=== PATIENT | female | born 1935 | race Caucasian/White ===

== ENCOUNTER 2017-01-18 19:47 | Emergency (ER) | payer OTHER ==
--- NOTE | 2017-01-18 20:07 | PROVIDER DOCUMENTATION ---
HPI-General Adult <FersandrakjJuanybrenda Gregorio - Last Filed: 01/18/17 21:28> - General Source: patient, [facility] - History of Present Illness -Gen Adult Nature of Presenting Problems: 81 year old F presents to the ED via EMS from [facility]. PT was sent here for abnormal labs and Potassium was 8.5. PT states that she has been feeling different and more weak lately. Location of Pain/Injury: reports: none Pain Radiation: reports: no radiation Quality of Pain: reports: none Severity: reports: mild Onset/Duration: reports: this evening Timing: reports: still present Context/Activities at Onset: reports: none Modifying Factors: improves with: nothing Associated Symptoms: reports: weakness Similar Symptoms Previously?: No Recently seen or treated by another doctor?: No <Jewell Hernadez - Last Filed: 01/19/17 01:18> - General Stated Complaint: abnormal labs Time Seen by Provider: 01/18/17 19:56 Allergies/Adverse Reactions: Patient Allergies Allergy/AdvReac Type Severity Reaction Status Date / Time prochlorperazine Allergy ANAPHYLAXIS Verified 01/18/17 20:23 [From Compazine] prochlorperazine edisylate * Allergy ANAPHYLAXIS Verified 01/18/17 20:23 [From Compazine] prochlorperazine maleate * Allergy ANAPHYLAXIS Verified 01/18/17 20:23 [From Compazine] Home Medications: Home Medication List Medication Instructions Recorded Confirmed Last Taken Type Acetaminophen [Tylenol] 850 mg PO Q6H PRN PRN 01/18/17 01/18/17 01/17/17 18:00 History Celecoxib [Celebrex] 200 mg PO DAILY 01/18/17 01/18/17 01/18/17 09:00 History Divalproex [Depakote] 125 mg PO DAILY 01/18/17 01/18/17 01/18/17 09:00 History Haloperidol Lactate [Haldol] 5 mg IM ONCE PRN 01/18/17 01/18/17 01/17/17 History 5 mg Hydrochlorothiazide 25 mg PO DAILY 01/18/17 01/18/17 01/18/17 09:00 History Lisinopril 10 mg pe PO DAILY 01/18/17 01/18/17 01/18/17 09:00 History Metoprolol Tartrate 25 mg PO DAILY 01/18/17 01/18/17 01/18/17 09:00 History Paliperidone Palmitate [Invega 78 mg IM DAILY MDD 78 mg/0.5 ml 01/18/1701/18/17 09:00 History Sustenna] 78 mg Pantoprazole [Protonix] 40 mg PO DAILY@0700 01/18/17 01/18/17 01/17/17 21:00 History Trazodone [Desyrel] 50 mg PO DAILY 01/18/17 01/18/17 01/17/17 21:00 History Review of Systems - Adult - REVIEW OF SYSTEMS - ADULT Constitutional: denies: chills, fever Eyes: reports: no symptoms reported Ears, Nose, Mouth & Throat: reports: no symptoms reported Cardiovascular: denies: chest pain, palpitations Respiratory: denies: cough, shortness of breath Gastrointestinal: denies: abdominal pain, nausea, vomiting Genitourinary: reports: no symptoms reported Musculoskeletal: reports: muscle weakness. denies: muscle aches Integumentary: denies: skin sores/ulcer, skin thickening Neurological: denies: dizziness/vertigo, headache/migraines Psychiatric: reports: no symptoms reported Endocrine: reports: no symptoms reported Hematologic/Lymphatic: reports: no symptoms reported Allergic/Immunologic: reports: no symptoms reported All Other Systems: Reviewed and Negative <Jewell Hernadez - Last Filed: 01/19/17 01:18> Past History - Adult - PAST MEDICAL HISTORY-ADULT Review of Records: reports: Nursing Assessment Review, Medications Reviewed Cardiovascular: reports: HTN, hyperlipidemia Neurological: reports: CVA Psychiatric: reports: schizophrenia - PRIOR SURGERIES/PROCEDURES Surgical/Procedure History: reports: hysterectomy, tonsillectomy, orthopedic ( extremity), joint replacement - IMMUNIZATION STATUS Childhood Immunizations: See Nurse Assessment Flu Vaccine: See Nurse Assessment - SOCIAL HISTORY Smoking: non-smoker Substance Use: none/never Alcohol Use Frequency: never <Jewell Hernadez - Last Filed: 01/19/17 01:18> Physical Exam-General - PHYSICAL EXAM-ADULT Initial Vital Signs Reviewed: Yes - CONSTITUTIONAL General Appearance: appears well, alert, no apparent distress - RESPIRATORY Respiratory: chest non-tender, lungs clear, normal breath sounds - CARDIOVASCULAR Cardiovascular: normal peripheral pulses, regular rate, rhythm, no edema - GASTROINTESTINAL (ABDOMEN) Abdominal Exam: non tender, soft - SKIN Integumentary: normal color, normal turgor, warm/dry - PSYCHIATRIC Psych/Mental Status: normal mood/affect, normal thought content, normal thought process, oriented x 3 <Jewell Hernadez - Last Filed: 01/19/17 01:18> Progress - PLAN OF CARE/RESULTS Progress/Plan/Lab Results: Vital Signs Temp Pulse Resp BP Pulse Ox 01/18/17 20:00 97.7 F 77 20 186/97 98 prochlorperazine [From Compazine] Allergy (Verified 01/18/17 20:23) ANAPHYLAXIS prochlorperazine edisylate * [From Compazine] Allergy (Verified 01/18/17 20:23) ANAPHYLAXIS prochlorperazine maleate * [From Compazine] Allergy (Verified 01/18/17 20:23) ANAPHYLAXIS Home Meds Unobtainable 01/18/17 I&O 01/17/17 01/18/17 01/19/17 06:59 06:59 06:59 Output Total 150 Balance -150 Laboratory 01/18/17 01/18/17 01/18/17 20:30 20:20 20:20 WBC RBC Hgb Hct MCV MCH MCHC RDW Std Deviation Plt Count MPV Immature Gran % (Auto) Neut % (Auto) Lymph % (Auto) [place] % (Auto) Eos % (Auto) Baso % (Auto) Immature Gran # (Auto) Neut # (Auto) Lymph # (Auto) [place] # (Auto) Eos # (Auto) Baso # (Auto) Sodium 132 L Potassium 4.3 D Chloride 96 L Carbon Dioxide 25 Anion Gap 11 BUN 22 Creatinine 0.9 BUN/Creatinine Ratio 24 Glucose 103 Calculated Osmolality 268 Calcium 9.2 Magnesium 1.6 Total Bilirubin 0.34 AST 19 ALT 17 Alkaline Phosphatase 70 Creatine Kinase 45 Troponin T < 0.010 Total Protein 6.3 Albumin 3.5 Globulin 2.8 Albumin/Globulin Ratio 1.3 Urine Source CLEAN CATCH Urine Color YELLOW Urine Turbidity CLEAR Urine pH 6.5 Ur Specific [place] 1.016 Urine Protein NEGATIVE Ur Glucose (Stick) NEGATIVE Ur Ketones (Stick) NEGATIVE Urine Blood NEGATIVE Urine Nitrite NEGATIVE Urine Bilirubin NEGATIVE Urobilinogen Dipstick NORMAL Urine Leukocytes NEGATIVE Urine WBC (Auto) <10 Urine RBC (Auto) <10 U Epithel Cells (Auto) <10 Urine Bacteria (Auto) NEGATIVE 01/18/17 20:20 WBC 5.14 RBC 4.01 L Hgb 12.8 Hct 36.9 L MCV 92.0 MCH 31.9 H MCHC 34.7 RDW Std Deviation 13.0 Plt Count 203 MPV 9.3 Immature Gran % (Auto) 0.0 Neut % (Auto) 61.9 Lymph % (Auto) 25.7 [place] % (Auto) 9.5 H Eos % (Auto) 2.5 Baso % (Auto) 0.4 Immature Gran # (Auto) 0.00 Neut # (Auto) 3.18 Lymph # (Auto) 1.32 [place] # (Auto) 0.49 Eos # (Auto) 0.13 Baso # (Auto) 0.02 Sodium Potassium Chloride Carbon Dioxide Anion Gap BUN Creatinine BUN/Creatinine Ratio Glucose Calculated Osmolality Calcium Magnesium Total Bilirubin AST ALT Alkaline Phosphatase Creatine Kinase Troponin T Total Protein Albumin Globulin Albumin/Globulin Ratio Urine Source Urine Color Urine Turbidity Urine pH Ur Specific [place] Urine Protein Ur Glucose (Stick) Ur Ketones (Stick) Urine Blood Urine Nitrite Urine Bilirubin Urobilinogen Dipstick Urine Leukocytes Urine WBC (Auto) Urine RBC (Auto) U Epithel Cells (Auto) Urine Bacteria (Auto) Orders Category Date Time Status Saline Loc NOW Care 01/18/17 20:03 Active CBC WITH ELECTRONIC DIFF [HEME] Stat Lab 01/18/17 20:20 Completed CK PROFILE [SP CHEM] Stat Lab 01/18/17 20:20 Completed COMPREHENSIVE METABOLIC PANEL [CHEM] Stat Lab 01/18/17 20:20 Completed MAGNESIUM [CHEM] Stat Lab 01/18/17 20:20 Completed TROPONIN T Stat Lab 01/18/17 20:20 Completed URINALYSIS W/POSS RFLX CULT [URINALYSIS] Stat Lab 01/18/17 20:30 Completed EKG [EKG] Stat Ther 01/18/17 20:03 Ordered <Juany Ghosh - Last Filed: 01/18/17 21:28> - EKG 1 Time of EKG reading by physician:: 20:11 EKG Read and Signed by:: Ruddy Molina EKG Interpretation (*Must complete 3 of following elements*): Abnormal Rate: 78 Rhythm: NSR QRS: RBB <Jewell Hernadez - Last Filed: 01/19/17 01:18> Departure - Departure Time of Disposition Order: 21:28 Certified Medical Emergency: Emergent <Juany Ghosh - Last Filed: 01/18/17 21:28> <Jewell Hernadez - Last Filed: 01/19/17 01:18> - Departure DIAGNOSIS: H/O hyperkalemia Disposition: HOME 01 Condition: Stable Additional Instructions: ED Follow Up Instructions: You have been treated by a care provider in the Emergency Department. These instructions are being provided to you so you can have an understanding of how to care for yourself upon discharge. Upon discharge from the Emergency Department, you are responsible for making arrangements for follow-up care by a physician of your choice. Take all prescribed medications as directed. Return to the Emergency Department immediately for any new or worsening symptoms. You may call the Physician Referral phone number at [phone] to obtain a list of Physicians who are taking new patients. Referrals: Ravin Lanier MD [Primary Care Provider] - Instructions: Hyperkalemia, [id number] Attestation - Scribe Verification/Attestation Scribe:: Jewell Hernadez Acting as Scribe for:: Juany Ghosh Scribe documention review:: This chart was documented by a scribe and accurately reflects the service the provider performed and the decisions made by the provider. <Jewell Hernadez - Last Filed: 01/19/17 01:18> Physician Attestation
[2017-01-18 20:40] LABS: MANUAL DIFF NEEDED? NO
[2017-01-18 20:48] LABS: BASO% 0.4 % (0.0-0.8); EOS# 0.13 X1000 (0.0-0.7); EOS% 2.5 % (0.0-10.0); HEMATOCRIT 36.9 % (37.0-47.0); HEMOGLOBIN 12.8 g/dL (12.0-16.0); LYMPH# 1.32 X1000 (1.2-3.4); LYMPH% 25.7 % (20.5-51.1); MCH 31.9 PG (27-31); MCHC 34.7 g/dL (33-37); MONO# 0.49 X1000 (0.11-0.59); MONO% 9.5 % (1.7-9.3); MPV 9.3 FL (7.4-10.4); NEUT% 61.9 % (42.2-75.2); PLT 203 X1000 (130-400); RBC 4.01 XMIL (4.2-5.4)
[2017-01-18 20:57] LABS: URINE CULTURE NEEDED? NO; URINE MICRO REVIEW NEEDED? NO; URINE SOURCE CLEAN CATCH
[2017-01-18 20:59] LABS: BILIRUBIN URINE NEGATIVE (NEGATIVE); BLOOD URINE NEGATIVE (NEGATIVE); COLOR YELLOW; GLUCOSE URINE NEGATIVE (NEGATIVE); LEUKOCYTES URINE NEGATIVE (NEGATIVE); NITRITE URINE NEGATIVE (NEGATIVE); PH URINE 6.5; PROTEIN URINE NEGATIVE (NEGATIVE); SP GRAVITY URINE 1.016; TURBIDITY URINE CLEAR (CLEAR); UROBILINOGEN URINE NORMAL (NORMAL)
[2017-01-18 21:00] LABS: UR EPITHELIAL CELLS <10 /HPF (<10); URINE BACTERIA NEGATIVE /HPF; URINE RBC <10 /HPF (<10); URINE WBC <10 /HPF (<10)
[2017-01-18 21:21] LABS: AGAP 11; ALBUMIN 3.5 g/dL (3.5-5.0); ALKALINE PHOSPHATASE 70 U/L (32-104); BUN 22 mg/dL (8-22); CALCIUM 9.2 mg/dL (8.8-10.2); CHLORIDE 96 mmol/L (98-107); CK PROFILE 45 U/L (24-173); COSMO 268; GOT 19 U/L (10-30); GPT 17 U/L (10-36); MAGNESIUM 1.6 mg/dL (1.5-2.7); POTASSIUM 4.3 mmol/L (3.5-5.1); SODIUM 132 mmol/L (136-145); TCO2 25 mmol/L (25-35); TOTAL BILIRUBIN 0.34 mg/dL (0.20-1.00); TOTAL PROTEIN 6.3 g/dL (6.3-8.3)
[2017-01-18 22:45] VITALS: BP 132/76
--- NOTE | 2017-01-19 05:19 | EKG Report ---
Test Performed on : 01/18/2017 8:11:11 PM Test Reason : elevated k Blood Pressure : / mmHG Vent. Rate : 078 BPM Atrial Rate : 078 BPM P-R Int : 170 ms QRS Dur : 124 ms QT Int : 406 ms P-R-T Axes : 063 052 021 degrees QTc Int : 462 ms Normal sinus rhythm. Right bundle branch block Abnormal ECG No previous ECGs available Unconfirmed Result
== END 2017-01-18 23:20 | disposition home or self-care (01) ==
LOC: EDBD → EDUNIT# → ED 19:47
DX: E87.5 Hyperkalemia (principal); M62.81 Muscle weakness (generalized); R94.31 Abnormal electrocardiogram [ECG] [EKG]; I11.0 Hypertensive heart disease with heart failure; E78.5 Hyperlipidemia, unspecified; Z86.73 Personal history of transient ischemic attack (TIA), and cerebral infarction without residual deficits; F20.9 Schizophrenia, unspecified; Z79.899 Other long term (current) drug therapy
CPT/HCPCS: 80053; 81001; 82550; 82948; 83735; 84484; 85025; 93005